=== PATIENT | male | born 1970 | race African-American/Black ===

== ENCOUNTER 2021-12-31 00:13 | Inpatient (IN) ==
[2021-12-31 01:12] LABS: Basophils # 0.1 10*3/uL (0.0-0.2); Basophils % 0.6 % (0.0-0.8); Eosinophils % 19.3 % (0.00-10.9); Hematocrit 28.2 VOL% (42.0-52.0); Hemoglobin 9.1 GM/DL (14.0-18.0); Immature Granulocytes % 0.4 %; Immature Granulocytes Absolute 0.04 #; Lymphocytes # 1.4 10*3/uL (1.4-4.0); Lymphocytes % 13.7 % (21.2-54.2); Mean Corpuscular HGB Conc 32.3 GM/DL (32-36); Mean Corpuscular Volume 97.6 FL (87-102); Mean Platelet Volume 10.2 FL (9.6-12.0); Monocytes % 8.2 % (1.7-12.7); Neutrophils % 57.8 % (38.7-73.9); Platelet Count 187 T/CUMM (130-400); Red Blood Count 2.89 MC/CUMM (3.8-5.5); White Blood Count 10.4 T/CUMM (4-12)
[2021-12-31 01:31] LABS: INR 1.1; PT Patient Result 11.8 SECS (10.5-12.0); Partial Thromboplastin Time 27.9 SECS (23.8-32.1)
[2021-12-31 01:34] LABS: Band Neutrophils 2 % (0-10); Eosinophils 27 % (0-10); Lymphocytes 21 % (20-55); Segmented Neutrophils 45 % (50-85); Total Cells Counted 100
[2021-12-31 01:35] LABS: Anisocytosis 2+; Hypersegmented Neutrophil 1+; Microcytosis 1+; Poikilocytosis 1+; Polychromasia 1+
[2021-12-31 01:36] LABS: Platelet Estimate Adequate
[2021-12-31 01:50] LABS: Alanine Aminotransferase 18 U/L (16-61); Albumin 4.1 G/DL (3.4-5.0); Alkaline Phosphatase 84 U/L (45-117); Aspartate Amino Transferase 7 U/L (0-37); Bilirubin,Total < 0.39 MG/DL (0.20-1.00); Blood Urea Nitrogen 115 MG/DL (7-18); Calcium 8.1 MG/DL (8.5-10.1); Carbon Dioxide 20 MMOL/L (21-32); Estimated Glom Filtration Rate 3 ML/MIN; Glucose 99 MG/DL (74-106); Osmolality,Calculated 311.7 MOS/KG (273-304); Sodium 138 MMOL/L (136-145)
[2021-12-31 01:55] LABS: Potassium 8.1 MMOL/L (3.5-5.1)
[2021-12-31] MEDS ORDERED: DEXTROSE 50% 25 GM/50 ML VIAL IV STA (01:56)
[2021-12-31] MEDS ORDERED: INSULIN REGULAR 100 UNIT/ML IV STA ×2 (01:57→05:48)
[2021-12-31] MEDS ORDERED: DEXTROSE 50% 25 GM/50 ML SYRINGE IV STA ×2 (01:58→05:50)
[2021-12-31] MEDS ORDERED: hydrALAZINE 20 MG/1 ML VIAL IV STA (03:26)
[2021-12-31] MEDS ORDERED: NITROGLYCERIN 2% OINT 1 INCH/GM PACK TOP STA (04:52)
[2021-12-31] MEDS ORDERED: GLUCAGON 1 MG VIAL IM PRN (05:09)
[2021-12-31] MEDS ORDERED: ONDANSETRON 4 MG/2 ML VIAL IV PRN (05:09)
[2021-12-31] MEDS ORDERED: ACETAMINOPHEN 325 MG TABLET PO PRN (05:09)
[2021-12-31] MEDS ORDERED: DEXTROSE 10% 250 ML BAG IV PRN ×2 (05:35→05:42)
[2021-12-31] MEDS ORDERED: ALBUTEROL 2.5 MG/3 ML NEB RESP TX STA (05:46)
[2021-12-31] MEDS ORDERED: hydrALAZINE 25 MG TABLET PO PRN (06:08)
[2021-12-31] MEDS ORDERED: SODIUM ZIRCONIUM CYCLOSILICATE 10 GM PACK PO STA (06:38)
[2021-12-31] MEDS ORDERED: CALCIUM GLUCONATE RIDER 2,000 MG/100 ML PREMIX IV ONE (08:05)
[2021-12-31] MEDS: amLODIPine 10 MG TABLET PO SCH (08:32)
[2021-12-31] MEDS: carvediloL 6.25 MG TABLET PO SCH ×2 (08:32→22:12)
[2021-12-31 09:02] LABS: Calcium 8.5 MG/DL (8.5-10.1); Osmolality,Calculated 309.1 MOS/KG (273-304)
[2021-12-31 09:08] LABS: Potassium 7.9 MMOL/L (3.5-5.1)
[2021-12-31 10:01] LABS: Hepatitis B Core IgM Quant 0.19 Index; Hepatitis B Surface Ag Quant < 0.10 Index; Hepatitis B Surface Ag Result Non-Reactive (NonReactive); Hepatitis C Virus Ab Quant < 0.02 Index; Hepatitis C Virus Ab Result Non-Reactive (NonReactive)
[2021-12-31] MEDS ORDERED: EPOETIN ALFA-EPBX 4,000 UNIT/ML VIAL IV PRN (11:08)
[2021-12-31] MEDS: SEVELAMER CARBONATE 800 MG TABLET PO SCH ×2 (14:23→22:12)
[2021-12-31] MEDS: hydrALAZINE 20 MG/1 ML VIAL IV PRN ×2 (14:28→18:30)
[2021-12-31 15:11] LABS: Calcium 9.1 MG/DL (8.5-10.1); Osmolality,Calculated 294.5 MOS/KG (273-304); Potassium 4.3 MMOL/L (3.5-5.1)
[2021-12-31] MEDS: OMEPRAZOLE ODT 20 MG TABLET PO SCH (16:00)
[2022-01-01 03:37] LABS: Basophils % 0.9 % (0.0-0.8); Eosinophils # 0.7 10*3/uL (0.0-0.87); Eosinophils % 15.7 % (0.00-10.9); Hematocrit 29.6 VOL% (42.0-52.0); Hemoglobin 9.6 GM/DL (14.0-18.0); Immature Granulocytes % 0.2 %; Immature Granulocytes Absolute 0.01 #; Lymphocytes # 0.8 10*3/uL (1.4-4.0); Lymphocytes % 18.3 % (21.2-54.2); Mean Corpuscular HGB Conc 32.4 GM/DL (32-36); Mean Corpuscular Volume 95.8 FL (87-102); Mean Platelet Volume 10.4 FL (9.6-12.0); Monocytes % 11.4 % (1.7-12.7); Neutrophils % 53.5 % (38.7-73.9); Platelet Count 180 T/CUMM (130-400); Red Blood Count 3.09 MC/CUMM (3.8-5.5); Red Cell Distribution Width 15.2 % (9.3-17.3); White Blood Count 4.6 T/CUMM (4-12)
[2022-01-01 03:59] LABS: Eosinophils 17 % (0-10); Lymphocytes 16 % (20-55); Segmented Neutrophils 58 % (50-85); Total Cells Counted 100
[2022-01-01 04:00] LABS: Hypochromia 1+; Microcytosis 1+; Platelet Estimate Adequate
[2022-01-01 04:01] LABS: Albumin 3.1 G/DL (3.4-5.0); Calcium 8.4 MG/DL (8.5-10.1); Osmolality,Calculated 298.4 MOS/KG (273-304); Potassium 5.1 MMOL/L (3.5-5.1)
[2022-01-01] MEDS: hydrALAZINE 20 MG/1 ML VIAL IV PRN (04:25)
[2022-01-01] MEDS: carvediloL 6.25 MG TABLET PO SCH (09:02)
[2022-01-01] MEDS: OMEPRAZOLE ODT 20 MG TABLET PO SCH (09:03)
[2022-01-01] MEDS: amLODIPine 10 MG TABLET PO SCH (09:03)
[2022-01-01] MEDS: SEVELAMER CARBONATE 800 MG TABLET PO SCH (10:07)
[2022-01-01 10:18] VITALS: BP 176/97
[2022-01-02] MEDS ORDERED: LOSARTAN 25 MG TABLET PO SCH (09:00)
== END 2022-01-01 12:44 | disposition home or self-care (01) | DRG 640 ==
LOC: N.EDINP 00:13 → N.ED 00:13 → SUATTDRO 05:09 → N.TELEN 01-01 10:09
PROVIDERS: ADMIT Internal Medicine; ATTEND Internal Medicine